=== PATIENT | male | born 1985 | race Caucasian/White ===

== ENCOUNTER 2016-09-26 06:13 | Emergency (ER) | payer OTHER ==
[2016-09-26 06:20] VITALS: BMI 22.4
[2016-09-26 06:24] VITALS: RESP 18; TEMP 97.9
[2016-09-26] MEDS ORDERED: Sodium Chloride 0.9% 1,000 ML IV STA (06:35)
--- NOTE | 2016-09-26 06:40 | ED PDOC ---
Arrival/HPI - General Historian: Patient - General Chief Complaint: Back Pain Time Seen by Provider: 09/26/16 06:21 - History of Present Illness Narrative History of Present Illness (Text): 09/26/16 06:30 Pt. presented to the ED no significant PMHX. with c/o onset severe left sided flank pain 2 hrs [employer].Pt. describes some dysuria,nausea and vomiting.No hx. of any trauma. (Jeancarlos Colunga) Past Medical History - Provider Review Nursing Documentation Reviewed: Yes - Travel History Have you recently traveled outside [place] w/in the past 3 mons?: No - Psychiatric Hx Substance Use: No Family/Social History - Physician Review Nursing Documentation Reviewed: Yes Family/Social History: No Known Family HX Smoking Status: no Hx Alcohol Use: No Hx Substance Use: No Allergies/Home Meds Allergies/Adverse Reactions: Allergies No Known Allergies Allergy (Verified 09/26/16 06:20) Home Medications: Home Meds Medication Instructions Recorded Confirmed No Known Home Med 09/26/16 09/26/16 Review of Systems - Review of Systems Constitutional: Normal Eyes: Normal ENT: Normal Respiratory: Normal Cardiovascular: Normal Gastrointestinal: Normal Genitourinary Male: Normal Musculoskeletal: Normal Skin: Normal Neurological: Normal Endocrine: Normal Hemo/Lymphatic: Normal Psychiatric: Normal Physical Exam Temperature: Afebrile Blood Pressure: Normal Pulse: Regular Respiratory Rate: Normal Appearance: Positive for: Well-Appearing, Non-Toxic, Uncomfortable Pain Distress: None Mental Status: Positive for: Alert and Oriented X 3 - Systems Exam Head: Present: Atraumatic, Normocephalic Pupils: Present: PERRL Extroacular Muscles: Present: EOMI Conjunctiva: Present: Normal Mouth: Present: Moist Mucous Membranes Neck: Present: Normal Range of Motion Respiratory/Chest: Present: Clear to Auscultation, Good Air Exchange. No: Respiratory Distress, Accessory Muscle Use Cardiovascular: Present: Regular Rate and Rhythm, Normal S1, S2. No: Murmurs Abdomen: Present: Normal Bowel Sounds. No: Tenderness, Distention, Peritoneal Signs Back: Present: Normal Inspection. No: CVA Tenderness Upper Extremity: Present: Normal Inspection. No: Cyanosis, Edema Lower Extremity: Present: Normal Inspection. No: Edema Neurological: Present: GCS=15, CN II-XII Intact, Speech Normal, Motor Func Grossly Intact, Normal Sensory Function Skin: Present: Warm, Dry, Normal Color. No: Rashes Psychiatric: Present: Alert, Oriented x 3, Normal Insight, Normal Concentration Medical Decision Making - Transfer of Care Patient signed out to Dr:: Ayden Pending Labs:: labs/U/A,CT scan Abd/Pelvis/reassess/final disposition Disposition/Present on Arrival - Present on Arrival Any Indicators Present on Arrival: No History of DVT/PE: No History of Uncontrolled Diabetes: No Urinary Catheter: No History of Decub. Ulcer: (nn) History Surgical Site Infection Following: None - Disposition Have Diagnosis and Disposition been Completed?: No Disposition Time: 07:00 - Disposition Diagnosis: Flank pain Condition: STABLE
[2016-09-26] MEDS ORDERED: HYDROmorphone 1 mg/ml ISec IVP STA ×2 (07:00→08:10)
[2016-09-26 07:20] LABS: HEMATOCRIT 40.1 % (42.0-52.0); MEAN CELL VOLUME 82.3 fL (80.0-105.0); MEAN CORPUSCULAR HEMOGLOBIN 28.7 pg (25.0-35.0); MEAN CORPUSCULAR HGB CONC 34.9 g/dl (31.0-37.0); RED CELL DISTRIBUTION WIDTH 12.7 % (11.5-14.5); WHITE BLOOD COUNT 7.9 10^3/ul (4.5-11.0)
[2016-09-26 07:35] LABS: URINE APPEARANCE SL CLOUDY (CLEAR); URINE BILIRUBIN NEGATIVE (NEGATIVE); URINE BLOOD SMALL (NEGATIVE); URINE COLOR YELLOW (YELLOW); URINE GLUCOSE (UA) NEGATIVE (NEGATIVE); URINE KETONE TRACE mg/dL (NEGATIVE); URINE LEUKOCYTE ESTERASE NEGATIVE Leu/uL (NEGATIVE); URINE PROTEIN 30 mg/dL (<30 mg/dL); URINE UROBILINOGEN 0.2 E.U./dL (<1 E.U./dL)
--- NOTE | 2016-09-26 07:37 | ED PDOC ---
Physical Exam Vital Signs Reviewed: Yes Vital Signs Temp Pulse Resp BP Pulse Ox 09/26/16 08:22 60 18 151/97 H 100 09/26/16 06:20 97.9 F 98 H 18 142/84 99 Temperature: Afebrile Blood Pressure: Normal Pulse: Regular Respiratory Rate: Normal Appearance: Positive for: Well-Appearing, Non-Toxic, Comfortable Pain Distress: None Mental Status: Positive for: Alert and Oriented X 3 Medical Decision Making ED Course and Treatment: 09/26/16 07:36 Patient presents with flank pain r/o renal colic. Will follow up imaging and labs. 09/26/16 07:54 CT IMPRESSION: 1. Findings are most compatible with recent passage of a 3 mm left renal stone which is identified in the distal ureteral just proximal to the UV junction. Mild fullness in the left collecting system and perinephric inflammatory changes. 2. Bilateral small nonobstructing renal stones. 09/26/16 08:32 on reeval, pt states that his pain has almost subsided asked for more pain meds I recommended pt be observed in the hospital for pain management and urology evaluation pt asking to be dc'd home instead, states he does not want to stay aware of risks pt's friend with him, states will take him home pt instructed not to drive or operate machinery today, verbalized understanding Pt states he understands to return to the ER right away for new or worsening symptoms or for inability to f/u with PMD or specialist as instructed. Patient states that he fully agrees with and understands discharge instructions. States that he agrees with the plan and disposition. Verbalized and repeated discharge instructions and plan. I have given the patient opportunity to ask any additional questions. - Lab Interpretations Lab Results: 09/26/16 07:00 09/26/16 07:00 Lab Results 09/26/16 07:00: WBC 7.9, RBC 4.87, Hgb 14.0, Hct 40.1 L, MCV 82.3, MCH 28.7, MCHC 34.9, RDW 12.7, Plt Count 243, MPV 10.0 09/26/16 07:00: Sodium 141, Potassium 3.6, Chloride 101, Carbon Dioxide 29, Anion Gap 15, BUN 17, Creatinine 1.0, Est GFR ( Amer) > 60, Est GFR (Non- Af Amer) > 60, Random Glucose 124 H, Calcium 9.7, Total Bilirubin 0.7, AST 30, ALT 21, Alkaline Phosphatase 62, Total Protein 7.7, Albumin 4.7, Globulin 3.0, Albumin/Globulin Ratio 1.6, Lipase 63 09/26/16 05:30: Urine Color Yellow, Urine Appearance Sl cloudy, Urine pH 6.0, Ur Specific Elmo >= 1.030, Urine Protein 30 H, Urine Glucose (UA) Negative, Urine Ketones Trace H, Urine Blood Small H, Urine Nitrate Negative, Urine Bilirubin Negative, Urine Urobilinogen 0.2, Ur Leukocyte Esterase Negative, Urine RBC 0 - 2, Urine WBC 1 - 3 I have reviewed the lab results: Yes - RAD Interpretation Radiology Orders: 09/26/16 06:41 ABD & PELVIS W/O PO OR IV CONT [CT] Stat - Medication Orders Current Medication Orders: Discontinued Medications Hydromorphone HCl (Dilaudid) 1 mg IVP STAT STA Stop: 09/26/16 07:01 Last Admin: 09/26/16 07:08 Dose: 1 mg Hydromorphone HCl (Dilaudid) 1 mg IVP STAT STA Stop: 09/26/16 08:11 Sodium Chloride (Sodium Chloride 0.9%) 1,000 mls @ 999 mls/hr IV .Q1H1M STA Stop: 09/26/16 07:35 Last Admin: 09/26/16 06:50 Dose: 999 mls/hr Ketorolac Tromethamine (Toradol) 30 mg IVP ONCE ONE Stop: 09/26/16 06:36 Last Admin: 09/26/16 06:49 Dose: 30 mg Ondansetron HCl (Zofran Inj) 4 mg IVP ONCE ONE Stop: 09/26/16 06:36 Last Admin: 09/26/16 06:50 Dose: 4 mg Tamsulosin HCl (Flomax) 0.4 mg PO STAT STA Stop: 09/26/16 08:11 - Scribe Statement The provider has reviewed the documentation as recorded by the Sarthak Sands Provider Scribe Attestation: All medical record entries made by the Scribe were at my direction and personally dictated by me. I have reviewed the chart and agree that the record accurately reflects my personal performance of the history, physical exam, medical decision making, and the department course for this patient. I have also personally directed, reviewed, and agree with the discharge instructions and disposition. Disposition/Present on Arrival - Present on Arrival Any Indicators Present on Arrival: No History of DVT/PE: No History of Uncontrolled Diabetes: No Urinary Catheter: No History of Decub. Ulcer: (nn) History Surgical Site Infection Following: None - Disposition Have Diagnosis and Disposition been Completed?: Yes Diagnosis: Flank pain Disposition: HOME/ ROUTINE Disposition Time: 08:36 Patient Plan: Discharge Patient Problems: Current Active Problems Problem Status Onset Flank pain Acute Condition: STABLE Discharge Instructions (ExitCare): Renal Colic (ED) Additional Instructions: PLEASE RETURN TO THE EMERGENCY DEPARTMENT FOR NEW OR WORSENING SYMPTOMS. RETURN RIGHT AWAY IF YOU CANNOT FOLLOW UP WITH YOUR PRIMARY CARE DOCTOR, CLINIC, OR SPECIALIST IN 1-2 DAYS. Please do not drink, drive, or operate machinery while taking medications. Prescriptions: Ibuprofen [Motrin] 600 mg PO Q8 PRN #12 tab PRN Reason: Pain, Moderate (4-7) oxyCODONE/Acetaminophen [Percocet 5/325 mg Tab] 1 ea PO BID PRN #8 tab PRN Reason: Pain, Moderate (4-7) Tamsulosin [Flomax] 0.4 mg PO DAILY #4 cap Referrals: PCP,NO [Primary Care Provider] - Follow up with primary Emmanuel Bull MD [Staff Provider] - Follow up with primary Anam Beal MD [Staff Provider] - Follow up with primary Forms: WORK NOTE, MTDTS
--- NOTE | 2016-09-26 07:47 | CT ---
PROCEDURE: CT Abdomen and Pelvis without intravenous contrast HISTORY: Left flank pain COMPARISON: None. TECHNIQUE: CT scan of the abdomen and pelvis was performed for targeted evaluation of urinary calculi without administration of oral or intravenous contrast. Coronal and sagittal reformatted images were obtained. Radiation dose: Total exam DLP = 393.49 mGy-cm. This CT exam was performed using one or more of the following dose reduction techniques: Automated exposure control, adjustment of the mA and/or kV according to patient size, and/or use of iterative reconstruction technique. FINDINGS: LOWER THORAX: The lung bases are clear. LIVER: The liver is normal in size. No intrahepatic biliary ductal dilatation. GALLBLADDER AND BILE DUCTS: No calcified gallstones. PANCREAS: The pancreas is normal in size without ductal dilatation. No calcifications. SPLEEN: The spleen is normal in size. ADRENALS: Both adrenal glands are normal in size without discrete nodule. KIDNEYS AND URETERS: Both kidneys are normal in size. There are small nonobstructing stones in both kidneys, the largest in the right upper pole measures 4 mm. There is mild fullness in the left collecting system, mild diffuse dilatation of the left ureteral and a 3 mm stone just proximal to the left UV junction. There is mild edema in the left kidney with minimal perinephric fat stranding. VASCULATURE: No aortic aneurysm. BOWEL: The small bowel loops are normal in caliber. The colon is unremarkable. No evidence of bowel dilatation or wall thickening. APPENDIX: The appendix is not distinctly identified however there are no inflammatory changes in the right lower quadrant. PERITONEUM: No free fluid. No free air. LYMPH NODES: There are small lymph nodes in the right lower quadrant. No pathologic lymphadenopathy. BLADDER: Grossly within normal limits. REPRODUCTIVE: The prostate gland is normal in size. BONES: No acute fracture. Within normal limits for the patient's age. OTHER FINDINGS: None. IMPRESSION: 1. Findings are most compatible with recent passage of a 3 mm left renal stone which is identified in the distal ureteral just proximal to the UV junction. Mild fullness in the left collecting system and perinephric inflammatory changes. 2. Bilateral small nonobstructing renal stones.
[2016-09-26 07:55] LABS: ALB/GLOB RATIO 1.6 (1.1-1.8); ALKALINE PHOSPHATASE 62 U/L (38-133); ALT/SGPT 21 U/L (7-56); AST/SGOT 30 U/L (15-59); BILIRUBIN,TOTAL 0.7 mg/dL (0.2-1.3); BLOOD UREA NITROGEN 17 mg/dL (7-21); CALCIUM 9.7 mg/dL (8.4-10.5); CARBON DIOXIDE 29 mmol/L (21-33); CHLORIDE 101 mmol/L (98-107); GFR AFRICAN-AMERICAN > 60; GLUCOSE,RANDOM 124 mg/dL (70-110); LIPASE 63 U/L (23-300); POTASSIUM 3.6 mmol/L (3.6-5.0); SODIUM 141 mmol/L (132-148); TOTAL PROTEIN 7.7 g/dL (5.8-8.3)
[2016-09-26 07:56] LABS: URINE RBC 0 - 2 /hpf (0-2)
[2016-09-26 08:22] VITALS: O2SAT 100
[2016-09-26 09:11] VITALS: BP 149/96; PULSE 83
[2016-09-26] MEDS ORDERED: Liquid Adhesive TOP ONE (11:37)
== END 2016-09-26 09:11 | disposition home or self-care (01) ==
LOC: ED 06:13
DX: R10.9 Unspecified abdominal pain (principal)
CPT/HCPCS: 74176; 80053; 81001; 83690; 85027; 96361; 96374; 96375; 96376; 99283; J1170; J1885; J2405; J7040